=== PATIENT | female | born 1990 | race Hispanic/Latino ===

== ENCOUNTER 2020-03-12 16:17 | Emergency (ER) | payer SELFPAY ==
[2020-03-12 17:37] LABS: Absolute Lymphocytes (CBC) 2.3 K/uL (0.7-4.9); Basophils % 0.6 % (0-1.3); Hematocrit 27.6 % (36.0-45.0); Lymphocytes % 33.5 % (15.3-44.8); MPV 9.7 fL (7.6-11.3); RBC Red Blood Cell Count 3.95 M/uL (3.86-4.86)
[2020-03-12] MEDS ORDERED: NA CHLORIDE 0.9% 1,000 ML ONE (17:41)
[2020-03-12 17:59] LABS: BUN Blood Urea Nitrogen 13 mg/dL (7-18); Bicarbonate 26 mmol/L (21-32); Glucose Level 73 mg/dL (74-106); Potassium 3.7 mmol/L (3.5-5.1); Sodium Level 140 mmol/L (136-145)
--- NOTE | 2020-03-12 18:05 | EDPHYS ---
Physician Documentation [facility] Name: Weston Irizarry Age: 29 yrs Sex: Female : 1990 Arrival Date: 03/12/2020 Time: 16:21 Bed 16 Private MD: ED Physician Harsh Gamble HPI: 03/12 17:20 This 29 yrs old Female presents to ER via Ambulatory with complaints of jonathan Vaginal Bleeding. 17:20 The patient presents with vaginal bleeding that is moderate, heavy, with clots. Onset: jonathan The symptoms/episode began/occurred 6 day(s) ago. Modifying factors: The symptoms are alleviated by nothing, the symptoms are aggravated by nothing. Associated signs and symptoms: The patient has no apparent associated signs or symptoms. Severity of symptoms: At their worst the symptoms were moderate, in the emergency department the symptoms are unchanged. The patient is sexually active, reportedly has a single partner. The patient has not experienced similar symptoms in the past. 17:20 The patient's method of control includes morning after pill. 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 - Social history:: Patient/guardian denies using alcohol, street drugs, tobacco products. ROS: 17:22 Constitutional: Negative for fever, chills, and weight loss, Eyes: Negative for injury, jonathan pain, redness, and discharge, ENT: Negative for injury, pain, and discharge, Neck: Negative for injury, pain, and swelling, Cardiovascular: Negative for chest pain, palpitations, and edema, Respiratory: Negative for shortness of breath, cough, wheezing, and pleuritic chest pain, Abdomen/GI: Negative for abdominal pain, nausea, vomiting, diarrhea, and constipation, Back: Negative for injury and pain, MS/Extremity: Negative for injury and deformity, Skin: Negative for injury, rash, and discoloration, Neuro: Negative for headache, weakness, numbness, tingling, and seizure, Psych: Negative for depression, anxiety, suicide ideation, homicidal ideation, and hallucinations, Allergy/Immunology: Negative for hives, rash, and allergies, Endocrine: Negative for neck swelling, polydipsia, polyuria, polyphagia, and marked weight changes, Hematologic/Lymphatic: Negative for swollen nodes, abnormal bleeding, and unusual bruising. 17:22 : Positive for pelvic pain, vaginal bleeding. Exam: 17:22 Constitutional: This is a well developed, well nourished patient who is awake, alert, jonathan and in no acute distress. Head/Face: Normocephalic, atraumatic. Eyes: Pupils equal round and reactive to light, extra-ocular motions intact. Lids and lashes normal. Conjunctiva and sclera are non-icteric and not injected. Cornea within normal limits. Periorbital areas with no swelling, redness, or edema. ENT: Nares patent. No nasal discharge, no septal abnormalities noted. Tympanic membranes are normal and external auditory canals are clear. Oropharynx with no redness, swelling, or masses, exudates, or evidence of obstruction, uvula midline. Mucous membranes moist. Neck: Trachea midline, no thyromegaly or masses palpated, and no cervical lymphadenopathy. Supple, full range of motion without nuchal rigidity, or vertebral point tenderness. No Meningismus. Chest/axilla: Normal chest wall appearance and motion. Nontender with no deformity. No lesions are appreciated. Cardiovascular: Regular rate and rhythm with a normal S1 and S2. No gallops, murmurs, or rubs. Normal PMI, no JVD. No pulse deficits. Respiratory: Lungs have equal breath sounds bilaterally, clear to auscultation and percussion. No rales, rhonchi or wheezes noted. No increased work of breathing, no retractions or nasal flaring. Back: No spinal tenderness. No costovertebral tenderness. Full range of motion. Skin: Warm, dry with normal turgor. Normal color with no rashes, no lesions, and no evidence of cellulitis. MS/ Extremity: Pulses equal, no cyanosis. Neurovascular intact. Full, normal range of motion. Neuro: Awake and alert, GCS 15, oriented to person, place, time, and situation. Cranial nerves II-XII grossly intact. Motor strength 5/5 in all extremities. Sensory grossly intact. Cerebellar exam normal. Normal gait. Psych: Awake, alert, with orientation to person, place and time. Behavior, mood, and affect are within normal limits. 17:22 Abdomen/GI: Inspection: abdomen appears normal, Bowel sounds: normal, Palpation: mild abdominal tenderness, in the suprapubic area, Liver: no appreciated palpable abnormalities, Hernia: not appreciated. Vital Signs: 16:36 BP 112 / 71; Pulse 83; Resp 16; Temp 98.5; Pulse Ox 100% ; Weight 45.36 kg; Height 5 ll1 ft. 0 in. (152.40 cm); Pain 0/10; 16:36 Body Mass Index 19.53 (45.36 kg, 152.40 cm) ll1 MDM: 16:49 Patient medically screened. [facility] 17:24 Data reviewed: vital signs, nurses notes, lab test result(s), CBC, electrolytes. Data [facility] interpreted: environmental monitoring specialist: not applicable for this patient encounter. Pulse oximetry: on room air is 100 %. Counseling: I had a detailed discussion with the patient and/or guardian regarding: the historical points, exam findings, and any diagnostic results supporting the discharge/admit diagnosis, radiology results, the need for outpatient follow up, for definitive care, an OB/Gyne specialist. ED course: pt with heavy bleeding day 6, periods normally 5 days. 18:05 Differential diagnosis: dysmenorrhea, menometrorrhagia, menorrhea, nonspecific jonathan abdominal pain, urinary tract infection. 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 limit activity. 03/12 16:49 Order name: Abo/rh Typing [facility] 03/12 16:49 Order name: Basic Metabolic Panel [facility] 03/12 16:49 Order name: CBC with Diff [facility] 03/12 16:49 Order name: ABO/RH typing; Complete Time: 18:42 [facility] 03/12 16:49 Order name: Basic Metabolic Panel; Complete Time: 18:02 [facility] 03/12 16:49 Order name: CBC with Automated Diff [facility] 03/12 16:49 Order name: Urine Test (obtain specimen); Complete Time: 17:36 [facility] 03/12 16:49 Order name: IV Saline Lock; Complete Time: 17:32 [facility] 03/12 16:49 Order name: Labs collected and sent; Complete Time: 17:32 [facility] 03/12 17:30 Order name: UA; Complete Time: 18:42 03/12 18:17 Order name: Urine Microscopic Only; Complete Time: 18:42 [facility] 03/12 18:18 Order name: Urine Culture [facility] 03/12 18:54 Order name: CBC Smear Scan [facility] 03/12 16:49 Order name: NPO; Complete Time: 17:33 [facility] 03/12 16:49 Order name: Urine Dipstick-Ancillary (obtain specimen); Complete Time: 19:58 [facility] 03/12 18:04 Order name: Orthostatics; Complete Time: 19:57 [facility] Administered Medications: 17:33 Drug: NS 0.9% 1000 ml Route: IV; Rate: 1 bolus; Site: left antecubital; hb 19:58 Follow up: Response: No adverse reaction; IV Status: Completed infusion 19:59 Follow up: IV Intake: 1000ml Disposition: 03/12/20 18:04 Discharged to Home. Impression: Abnormal uterine and vaginal bleeding, unspecified, Anemia, unspecified. - Condition is Stable. - Discharge Instructions: Abnormal Uterine Bleeding, Iron Deficiency Anemia, Adult, Dysmenorrhea, Abnormal Uterine Bleeding, [id number]-[id number], Iron Deficiency Anemia, Adult, [id number]-sm-[id number], Dysmenorrhea, [id number]. - Prescriptions for Motrin IB 200 mg Oral Tablet - take 2 tablet by ORAL route every 6 hours As needed as needed with food; 30 tablet. Vitamin 27- 0.8 mg Oral Tablet - take 1 tablet by ORAL route once daily; 30 tablet. - Medication Reconciliation Form, Thank You Letter, Antibiotic Education, Prescription Opioid Use form. - Follow up: Private Physician; When: 2 - 3 days; Reason: Recheck today's complaints, Continuance of care, Re-evaluation by your physician. Follow up: Marianne Garcia; When: 2 - 3 days; Reason: Recheck today's complaints, Re-evaluation by your physician. - Problem is new. - Symptoms have improved. Signatures: Dispatcher [employer] [facility] Harsh Gamble MD MD cha Baxter, Heather, RN RN hb Calcote, Vanessa, RN RN vc Lewis, Lynsay, RN RN ll1 Nicole Gray RN Corrections: (The following items were deleted from the chart) 18:59 18:04 03/12/2020 18:04 Discharged to Home. Impression: Abnormal uterine and vaginal vc bleeding, unspecified; Anemia, unspecified. Condition is Stable. Discharge Instructions: Abnormal Uterine Bleeding, Dysmenorrhea, Abnormal Uterine Bleeding, [id number]-[id number], Dysmenorrhea, [id number]-[id number]. Prescriptions for Motrin IB 200 mg Oral Tablet - take 2 tablet by ORAL route every 6 hours As needed as needed with food; 30 tablet. and Forms are Medication Reconciliation Form, Thank You Letter, Antibiotic Education, Prescription Opioid Use. Follow up: Private Physician; When: 2 - 3 days; Reason: Recheck today's complaints, Continuance of care, Re-evaluation by your physician. Follow up: Marianne Garcia; When: 2 - 3 days; Reason: Recheck today's complaints, Re-evaluation by your physician. Problem is new. Symptoms have improved. jonathan
--- NOTE | 2020-03-12 18:05 | ER ---
Nurse's Notes [facility] Name: Weston Irizarry Age: 29 yrs Sex: Female : 1990 Arrival Date: 03/12/2020 Time: 16:21 Bed 16 Private MD: Diagnosis: Abnormal uterine and vaginal bleeding, unspecified;Anemia, unspecified Presentation: 03/12 16:36 Chief complaint: Patient states: Heavy vaginal bleeding with clots for 6 days. Not ll1 . No fever. Coronavirus screen: Proceed with normal triage. Patient denies a cough. Patient denies shortness of breath or difficulty breathing. Patient denies measured and/or subjective temperature greater than 100.4F prior to today's visit. Patient denies travel on a cruise ship or to a country the [facility] currently lists as an affected area. Patient denies contact with known and/or suspected case of COVID-19. Ebola Screen: Patient denies travel to an Ebola-affected area in the 21 days before illness onset. Initial Sepsis Screen: Does the patient meet any 2 criteria? No. Patient's initial sepsis screen is negative. Does the patient have a suspected source of infection? No. Patient's initial sepsis screen is negative. Risk Assessment: Do you want to hurt yourself or someone else? Patient reports no desire to harm self or others. Onset of symptoms was March 07, 2020. 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 - Social history:: Patient/guardian denies using alcohol, street drugs, tobacco products. Screenin:00 Abuse screen: Denies threats or abuse. Nutritional screening: No deficits noted. Tuberculosis screening: No symptoms or risk factors identified. Fall Risk None identified. Assessment: 16:55 General: Appears in no apparent distress. distressed, Behavior is calm, cooperative, ah appropriate for age. Pain: Denies pain. Neuro: Level of Consciousness is awake, alert, Oriented to person, place, time, situation. Cardiovascular: Heart tones S1 S2 present. Respiratory: Airway is patent is compromised Respiratory effort is even, unlabored, Respiratory pattern is regular, symmetrical. GI: No signs and/or symptoms were reported involving the gastrointestinal system. : Urine is blood tinged, Reports vaginal bleeding that is bright red, with clots, heavy flow Pt states that this is day 6 of her period and it usually doesn't go more than 5 days Denies cramping pain. EENT: No signs and/or symptoms were reported regarding the EENT system. Derm: No signs and/or symptoms reported regarding the dermatologic system. Musculoskeletal: No signs and/or symptoms reported regarding the musculoskeletal system. Vital Signs: 16:36 BP 112 / 71; Pulse 83; Resp 16; Temp 98.5; Pulse Ox 100% ; Weight 45.36 kg; Height 5 ll1 ft. 0 in. (152.40 cm); Pain 0/10; 16:36 Body Mass Index 19.53 (45.36 kg, 152.40 cm) ll1 ED Course: 16:21 Patient arrived in ED. am2 16:38 Triage completed. ll1 16:39 Arm band placed on Patient placed. ll1 16:48 Harsh Gamble MD is Attending Physician. jonathan 17:00 Nicole Gray, CHUY is Primary Nurse. 17:10 Inserted saline lock: 20 gauge in left antecubital area, using aseptic technique. ah 18:04 Marianne Garcia MD is Referral Physician. [facility] 18:30 No provider procedures requiring assistance completed. 18:30 IV discontinued, intact, bleeding controlled, No redness/swelling at site. Pressure dressing applied. 20:21 Patient has correct armband on for positive identification. Bed in low position. Call light in reach. Side rails up X 1. Administered Medications: 17:33 Drug: NS 0.9% 1000 ml Route: IV; Rate: 1 bolus; Site: left antecubital; hb 19:58 Follow up: Response: No adverse reaction; IV Status: Completed infusion 19:59 Follow up: IV Intake: 1000ml ah Outcome: 18:04 Discharge ordered by . [facility] 18:45 Discharged to home ambulatory. 18:45 Condition: good 18:45 Discharge instructions given to patient, Instructed on discharge instructions, follow up and referral plans. medication usage, Demonstrated understanding of instructions, follow-up care, medications, Prescriptions given X 2. 18:59 Patient left the ED. vc Signatures: Harsh Gamble MD MD cha Baxter, Heather, RN RN Katie Rice am2 Diana Powell RN RN vc Harris, Amy, RN RN ah Lewis, Lynsay, RN RN ll1
[2020-03-12 18:09] LABS: Urine Appearance TURBID; Urine Bilirubin NEGATIVE (NEG); Urine Blood 3+ (NEG); Urine Color RED; Urine Glucose NEGATIVE (NEG); Urine Protein 3+ (NEG); Urine Specific Gravity >=1.030 (1.005-1.030); Urine pH 5.5 (5.0-7.0)
[2020-03-12 18:16] LABS: Urine Microscopic Reflex ORDER UMIC
[2020-03-12 18:17] LABS: Urine Bacteria 20-50 /HPF (<20); Urine Culture Reflex Order REFLEXED; Urine RBC TNTC /HPF (NONE SEEN)
[2020-03-12 18:53] LABS: Anisocytosis 3+; Blood Morphology Comment NOTED (NOT SEEN); Hypochromasia 1+; Platelet Estimate ADEQ; Urine White Blood Cell Casts OK
[2020-03-12 19:46] VITALS: BP 112/71; TEMP 98.5; O2SAT 100
== END 2020-03-12 18:59 | disposition home or self-care (01) ==
LOC: ER 16:17
DX: D64.9 Anemia, unspecified (principal)
CPT/HCPCS: 36415; 80048; 81003; 81015; 85025; 86900; 86901; 87086; 87088; 96360; 96361; 99283; J7030